=== PATIENT | male | born 1995 | race Caucasian/White ===

== ENCOUNTER 2019-12-20 10:26 | Emergency (ER) | payer SELFPAY ==
[2019-12-20 10:27] VITALS: BP 148/77; PULSE 93; RESP 18; TEMP 37.1; O2SAT 98; BMI 45.8
[2019-12-20 10:48] VITALS: BP 148/77; PULSE 97; RESP 16; TEMP 37.1; O2SAT 97
--- NOTE | 2019-12-20 11:08 | ED.VIS.GEN ---
History of Present Illness Chief Complaint: Sore Throat Informant: Patient Narrative: On Thursday he began to experience a sore throat. It is progressively worsened. Is been helped by anti-inflammatories. He denies any fever or rashes. He notes minimal cough. He had strep throat in the past but not frequently. Denies any ear symptoms. Past Medical History - Allergies and Home Meds Allergies/Adverse Reactions: Allergies No Known Allergies Allergy (Verified 12/20/19 10:29) Primary Care Physician: Saroj Woody MD [Primary Care Provider] - Smoking Status: Current every day smoker Review of Systems General: Denies: Chills, Fever, Sweats Eyes: Denies: Visual changes - bilaterally, Diplopia ENT: Reports: Sore throat. Denies: Bilateral ear pain, Left ear pain, Right ear pain, Rhinorrhea Cardiovascular: Denies: Chest pain, Palpitations Respiratory: Denies: Dyspnea, Cough, Dyspnea on exertion Gastrointestinal: Denies: Abdominal pain, Nausea, Vomiting, Diarrhea, Melena, Hematochezia Genitourinary: Denies: Dysuria, Hematuria, Frequency Musculoskeletal: Denies: Back pain, Extremity Pain Skin: Denies: Rash, Wounds Neurological: Denies: Headache, Weakness, Numbness Physical Exam Vital Signs/Narrative: Vital Signs Temp Pulse Resp BP Pulse Ox 12/20/19 10:48 98.8 F 97 16 148/77 H 97 12/20/19 10:27 98.8 F 93 18 148/77 H 98 Inital Vital Signs reviewed: Yes General: Well nourished, Well developed, No Acute Distress Head: Normocephalic, Atraumatic Eyes: Perrl, EOMI ENT: Moist mucous membranes, No rhinorrhea, - - The oropharynx demonstrates mild erythema. There is bilateral tonsillar exudates left greater than right. Neck: Supple, Nontender, - - There are anterior lymph nodes palpable and mildly tender. Negative for: No lymphadenopathy Cardiovascular: Regular rate, Regular rhythm, No murmurs Respiratory: No distress, CTA bilaterally, Chest nontender Abdomen: Soft, Nontender, Nondistended, Normal bowel sounds Back: Nontender, Normal Inspection Extremities: Nontender, No edema Skin: Normal color, No rash Neurological: Alert, Oriented x3, Cranial nerves II-XII grossly intact, Normal Strength, Normal Sensation Psychological: Normal affect, Normal Mood Diagnostic/Tx/Re-eval - Medical Decision Making Patient will have a throat culture performed and we will place him on antibiotics. Patient return if worsening or concerns ED Disposition - Plan for ED Patient: Disposition: Home or Assisted Living Diagnosis: Pharyngitis Instructions: PHARYNGITIS, Report Pending Prescriptions: Cefdinir [Omnicef [equiv]] 300 mg PO Q12H #20 cap Transmission Status: Pending to [id number] Referrals: Saroj Woody MD [Primary Care Provider] - As Needed
== END 2019-12-20 11:28 | disposition home or self-care (01) ==
LOC: ED 11:24
PROVIDERS: Emergency Provider Emergency Medicine; PCP Pediatrics
DX: J02.9 Acute pharyngitis, unspecified (principal); F17.200 Nicotine dependence, unspecified, uncomplicated
CPT/HCPCS: 87070; 99282

== ENCOUNTER 2021-06-14 14:51 | Emergency (ER) | payer MEDICAID, SELFPAY ==
[2021-06-14 14:52] VITALS: BP 132/82; PULSE 91; RESP 20; TEMP 37.1; O2SAT 97; BMI 39.1
--- NOTE | 2021-06-14 15:20 | RAD_ITS ---
STUDY: X-RAY CHEST REASON FOR EXAM: Male, 25 years old. cough TECHNIQUE: Single AP portable view of the chest. COMPARISON: None. FINDINGS: Patchy alveolar opacity in both lungs consistent with bilateral pneumonia. There is no demonstrated pleural abnormality. Normal size heart. Normal mediastinum and jose. Normal visualized pulmonary arteries. Normal visualized aortic arch and descending thoracic aorta. Normal visualized thoracic spine. Normal visualized ribs, clavicles, and shoulders. There is no demonstrated abnormality of the visualized soft tissue structures of the upper abdomen. RAD/Chest 1 View (Portable) IMPRESSION: Bilateral pneumonia. Electronically Signed: Car Rahman MD at 16:11 EDT Tel , Service support ,
--- NOTE | 2021-06-14 15:21 | EDS_ITS ---
HPI History of Present Illness Chief Complaint: General Illness Informant: patient and spouse/S.O. Onset/Context/Timing Onset: Days (Onset of illness ThursdayJune 08) Context: Sudden Onset Timing: Continuous and Waxes and wanes Quality: Fever, respiratory symptoms, loss of taste and smell, upper abdominal pain Current Severity: Mild Maximum Severity: Moderate Worsened by: Dyspnea on exertion Associated Symptoms Associated Symptoms: Respiratory, GI and fever and chills Narrative Narrative: Patient is an unvaccinated 25-year-old male who was exposed to someone with Covid 2 weeks ago. His right illness started on Thursday. He has a T-max of 101.8 ?F. Complains of headache, mild photophobia. Denies neck pain or neck stiffness. Does report rhinorrhea, congestion postnasal drainage. Does report shortness of breath and sore throat. His cough is nonproductive. Does report abdominal pain predominately right upper but also left upper. He denies dysuria, frequency, urgency or hematuria. He denies rash. He denies anesthesia, paresthesia or motor weakness. Denies trouble with balance. He states his symptoms are worse at night when he is lying down. Prior similar symptoms: No Recent Illness/Hospitalization: No PFSH PFSH Home Medications cefdinir 300 mg PO Q12H #20 cap 12/20/19 [Rx Last Taken Unknown] Allergy/AdvReac Type Severity Reaction Status Date / Time No Known Allergies Allergy Verified 12/20/19 10:29 no surgical history Social History (Updated 06/14/21 @ 15:[address] Ryan Combs MD) household members: significant other Smoking Status: Former smoker alcohol intake: current details: Not recently substance use type: does not use ROS ROS ED Constitutional Constitutional ED: Reports chills, fever(s) and sweats; Denies weight loss Eyes Eyes: Denies blurry vision, change in vision or diplopia ENT ENT ED: Reports rhinorrhea and sore throat; Denies ear pain Cardiovascular Cardiovascular: Reports chest pain; Denies orthopnea, palpitations, paroxysmal nocturnal dyspnea or racing heartbeat Respiratory/Chest Respiratory/Chest: Reports cough, dyspnea and dyspnea on exertion; Denies orthopnea, paroxysmal nocturnal dyspnea or sputum Gastrointestinal Gastrointestinal: Reports abdominal pain, diarrhea, nausea and vomiting; Denies constipation or melena Genitourinary Genitourinary ED: Denies dysuria, hematuria or urinary frequency Musculoskeletal Musculoskeletal: Reports arthralgias and myalgias; Denies back pain or neck pain Integumentary Denies abscess, Abrasions or rash Neurologic Neurologic: Reports headache(s); Denies paresthesias Endocrine Endocrinology: Denies polydipsia, polyphagia or polyuria Allergic/Immunologic Allergic/Immunologic ED: Denies mouth swelling or urticaria EXAM Physical Exam Const Vital Signs: 06/14/21 14:52 06/14/21 15:42 Temperature 98.8 F Temperature Source Temporal Pulse Rate 91 Respiratory Rate 20 H Respiratory Effort Normal Non-Labored Respiratory Depth Normal Respiratory Pattern Normal Blood Pressure 132/82 H Blood Pressure Mean 98 Pulse Ox 97 Oxygen Delivery Method Room Air Room Air Positive well nourished, well developed, obese and unkempt General Appearance ED: unkempt and well developed Nutritional Appearance: obese HEENT Reports TM's clear and dry mucous membranes HEENT Narrative: Nares patent. Ears normal. There is clear drainage noted from the nares. Posterior pharynx without erythema or exudate. Tympanic Membrane ED: Yes TM's clear Mouth ED: Yes dry mucous membranes Mouth: dry mucous membranes Eyes PERRL and EOMs intact bilaterally General Eye ED: Negative for pale conjunctiva or scleral icterus Neck supple and no JVD Neck Narrative: Trachea is midline. There is no inspiratory stridor. Chest Wall inspection of chest normal and palpation of chest normal Resp normal respiratory effort and No clear to auscultation bilaterally Auscultation: rales right base Cardio regular rate, regular rhythm, S1 normal heart sound, S2 normal heart sound and no murmurs GI normal to inspection, nondistended, normoactive bowel sounds, non-tender and non-distended Palpation: soft Back/Spine no CVA tenderness Cervical Spine: Negative for cervical spine tenderness Thoracic Spine / Upper Back: Negative for thoracic spinal tenderness or paraspinal muscle tenderness Lumbar Spine / Lower Back: Negative for lumbar spinal tenderness Extremity normal to inspection General Extremety ED: Negative for edema or tenderness General Extremity: Negative for edema Neuro oriented x3, CN's II-XII intact bilaterally and no sensory deficits noted Sensorium / Orientation: alert Motor Exam: strength 5/5 throughout Psych mental status grossly normal Appearance: unkempt Skin no wounds and skin turgor normal General Skin Exam: other Patient has a fine lenticular rash in her upper extremities. MDM MDM MDM Narrative Medical decision making narrative: Suspect patient has Covid. Since he has upper abdominal pain with rales right lower lobe suspect right lower lobe pneumonia. Because of poor p.o. intake baseline blood work was obtained assess renal function and electrolytes especially potassium since he has diarrhea. Lab Data Attestation: I reviewed the patient's lab results. Lab results narrative: Liver enzymes are elevated. This most likely is due to Covid. CBC is unremarkable. Renal functions unremarkable. Labs: Laboratory Results - last 24 hr 06/14/21 06/14/21 15:35 15:35 WBC 4.8 RBC 5.28 Hgb 15.7 Hct 46.2 MCV 87.5 MCH 29.7 MCHC 34.0 RDW Std Deviation 39.3 RDW Coeff of Steven 12.3 Plt Count 163 MPV 10.3 Immature Gran % (Auto) 0.200 Neut % (Auto) 58.5 Lymph % (Auto) 29.3 [place] % (Auto) 11.4 H Eos % (Auto) 0.2 Baso % (Auto) 0.4 Absolute Neuts (auto) 2.8 Absolute Lymphs (auto) 1.41 Nucleated RBC % 0 Sodium 138 Potassium 3.6 Chloride 105 Carbon Dioxide 29.0 Anion Gap 4 L BUN 13 Creatinine 0.90 Estim Creat Clear Calc 109.14 Est GFR (MDRD) Af Amer 132 Est GFR (MDRD) Non-Af 109 BUN/Creatinine Ratio 14.4 Glucose 112 H Calcium 9.2 Total Bilirubin 0.50 AST 106 H ALT 116 H Alkaline Phosphatase 94 Total Protein 8.3 H Albumin 3.9 Globulin 4.4 H Albumin/Globulin Ratio 0.9 Radiography Chest X-Ray - ED: 1 View, Read by ED Physician (X-rays interpreted by me at 10/17/2006. Findings are consistent with Covid pneumonia.), Right Infiltrate and Left Infiltrate (There is either atelectasis or infiltrate left lower lobe.) Discharge Plan Triage Chief Complaint: General Illness ED Provider: Ryan Combs Dx/Rx/DC Orders Clinical Impression: Pneumonia due to 2019 novel coronavirus, Diarrhea due to COVID-19, Dehydration, mild, Elevated liver enzymes, Dyspnea due to COVID-19 Instructions: Coronavirus Disease 2019 (COVID-19): Caring for Yourself or Others Prescriptions: No Action cefdinir 300 MG capsule 300 mg PO Q12H Qty: 20 RF: 0 Primary Care Provider: Care Physician,No Primary Referrals: Care Physician,No Primary [Primary Care Provider] - Doctor,Your [STAFF PHYSICIAN] - 10-14 Days if not better Activity Restrictions/Additional Instructions: The name of your primary care doctor is located on your insurance card issued to you by em [facility]ano Disposition: Home, Self Care
[2021-06-14 15:42] VITALS: O2SAT 92
[2021-06-14 15:50] LABS: Absolute Lymphocyte Count 1.41 X10^3/uL (0.83-4.51); Absolute Neutrophil Count 2.8 X10^3/uL (2.0-7.7); Basophil# 0.02 X10^3/uL; Basophil% 0.4 % (0-1); Eosinophil# 0.01 X10^3/uL; Eosinophils% 0.2 % (0-5); Hematocrit 46.2 % (40-54); Hemoglobin 15.7 g/dL (13.0-16.5); Lymphocyte # 1.41 X10^3/ul (0.83-4.51); Lymphocyte % 29.3 % (19-41); Mean Corpuscular Hgb 29.7 pg (27.0-32.0); Mean Corpuscular Volume 87.5 fL (80-94); Mean Platelet Vol. 10.3 fl (6.2-12.0); Monocyte# 0.55 X10^3/uL; Monocyte% 11.4 % (0-10); NRBC Flagged by Analyzer 0 % (0-5); Neutrophil # 2.82 X10^3/uL (2.7-7.7); Neutrophil % 58.5 % (47-70); Platelet Count 163 K/mm3 (150-450); RBC Distribution Width CV 12.3 % (11.6-14.6); RBC Distribution Width SD 39.3 fl (35.1-43.9); Red Blood Count 5.28 M/mm3 (4.6-6.2); White Blood Count 4.8 K/mm3 (4.4-11.0)
[2021-06-14 16:04] LABS: ALB/GLOB Ratio 0.9 RATIO (0.9-2.4); AST(SGOT) 106 U/L (15-37); Alanine Aminotransfer ALT/SGPT 116 U/L (16-61); Albumin, Serum 3.9 g/dL (3.2-5.0); Alkaline Phosphatase 94 U/L (45-117); Anion Gap 4 (5-15); BUN 13 mg/dL (7-18); BUN/Creat Ratio 14.4 RATIO (10-20); Calcium,Total 9.2 mg/dL (8.5-10.1); Chloride 105 mmol/L (98-107); EST Glomerular Filtration Rate 109 mL/min (>60); Est Glom Filt Rate - Afr Amer 132 mL/min (>60); Estimated Creatinine Clearance 109.14 ml/min; Globulin 4.4 g/dL (2.2-4.2); Glucose 112 mg/dL (74-106); Potassium 3.6 mmol/L (3.5-5.1); Protein, Total 8.3 g/dL (6.4-8.2); Sodium Level 138 mmol/L (136-145)
[2021-06-14 16:17] VITALS: BP 118/66; PULSE 92; RESP 26; O2SAT 92
== END 2021-06-14 16:26 | disposition home or self-care (01) ==
PROVIDERS: Emergency Provider Emergency Medicine
DX: U07.1 COVID-19 (principal); J12.82 Pneumonia due to coronavirus disease 2019; E86.0 Dehydration; R19.7 Diarrhea, unspecified; R74.8 Abnormal levels of other serum enzymes; Z87.891 Personal history of nicotine dependence; E66.9 Obesity, unspecified
CPT/HCPCS: 71045; 80053; 85025; 87426; 99284